=== PATIENT | female | born 1990 | race Caucasian/White ===

== ENCOUNTER 2023-03-27 15:10 | Outpatient (CLI) | payer BC, SELFPAY ==
--- NOTE | 2023-03-27 15:30 | MR_ITS ---
[address] [address] Phone:?[phone] Fax:?[phone] Referring Physician Information: Jhonatan Farias M.D. [address] [facility] [address] Phone:?[phone] Fax:?[phone] Patient:Eh Bowie D.O.B:?1990 Sex:?Female Phone:?[phone] [facility] MRN:?[id number] Exam Date:?03/27/2023 EXAM: MRI OF THE RIGHT KNEE CLINICAL INFORMATION: The patient is a 32-year-old with right knee pain. Evaluate for internal derangement. PRIOR SURGERY: None reported. COMPARISON STUDIES: Comparison is made to prior radiographs dated 03/20/2023. TECHNICAL INFORMATION: Imaging was performed on a high-field, 1.5 Maddie MR scanner. Axial proton-density and fat-suppressed T2 imaging was performed in addition to sagittal proton-density and fat-suppressed proton-density imaging. Coronal proton-density and coronal STIR imaging was also produced. FINDINGS: Articular/Extraarticular collections: Effusion: Mild. Popliteal cyst: Animal. Loose bodies: No well-defined intra-articular loose bodies are present. Subcutaneous and extraarticular soft tissues: Within normal limits. Osseous structures: Mild reactive bony change can be seen along the patellar apex, in keeping with the chondromalacia and chondral loss discussed below. No other bony abnormalities about the knee are seen. There is no evidence for fracture, contusion, or stress injury. Ligamentous structures: ACL: Intact and normal in appearance. PCL: Intact and normal in appearance. MCL: Intact and normal in appearance. LCL: Intact and normal in appearance. Posterolateral corner: Intact and normal in appearance. Posteromedial corner: No posteromedial corner soft tissue injury. Semimembranosus and pes anserine tendons demonstrate no tendinopathy or associated bursitis. Extensor mechanism/Patellar retinacular structures: Patellar tendon: Intact, without tendinopathy. Quadriceps tendon: Intact, without tendinopathy. Retinacula: The medial and lateral retinacula are intact. The medial patellofemoral ligament is intact. Medial compartment: Medial meniscus: No evidence for medial meniscal tearing can be seen. There is no evidence for parameniscal cyst formation. No meniscocapsular separation injury is identified. Medial femoral condyle: No chondromalacia, chondral defect, or osteochondral abnormality. Medial tibial plateau: No chondromalacia, chondral defect, or osteochondral abnormality. Lateral compartment: Lateral meniscus: No evidence for lateral meniscal tearing is present. No evidence for parameniscal cyst formation can be seen. Lateral femoral condyle: No chondromalacia, chondral defect, or osteochondral abnormality. Lateral tibial plateau: No chondromalacia, chondral defect, or osteochondral abnormality. Patellofemoral compartment: Patella: Full-thickness and near full-thickness chondral loss can be seen involving the patellar apex on axial series 4 image 10, measuring approximately 9 mm in mediolateral dimension and 10 mm in craniocaudal dimension. Underlying bony changes are seen. Additional mild chondromalacia along the remaining articular surfaces of the patella can be seen. Mild underlying bony changes within the patellar apex are noted. Trochlea: No chondromalacia, chondral defect, or osteochondral abnormality. Neurovascular: No definite neurovascular abnormalities are seen. CONCLUSION: 1. 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 2. No other chondral injuries about the knee are present. 3. No evidence for medial or lateral meniscal tearing is identified. 4. The cruciate and collateral ligaments appear intact. 5. No acute bony abnormalities are seen. 6. Mild knee joint effusion and minimal popliteal cyst. [facility] Electronically signed on 03/30/2023 11:27:00 AM by Jimi Ramsey M.D.
== END 2023-03-27 15:11 | disposition home or self-care (01) ==
PROVIDERS: PCP Family Medicine; Visit Provider Orthopaedic Surgery Sports Medicine
DX: M25.561 Pain in right knee (principal); M22.41 Chondromalacia patellae, right knee; M25.461 Effusion, right knee; M71.21 Synovial cyst of popliteal space [Baker], right knee; M23.91 Unspecified internal derangement of right knee
CPT/HCPCS: 73721

== ENCOUNTER 2023-05-13 13:45 | Outpatient (RCR) | payer BC, SELFPAY | END 2023-05-13 14:43 | disposition home or self-care (01) | PROVIDERS: PCP Family Medicine; Visit Provider Orthopaedic Surgery Sports Medicine | DX: M22.2X9 Patellofemoral disorders, unspecified knee (principal); M23.91 Unspecified internal derangement of right knee; S83.241A Other tear of medial meniscus, current injury, right knee, initial encounter; M25.561 Pain in right knee; Z74.09 Other reduced mobility; R29.898 Other symptoms and signs involving the musculoskeletal system; Z51.89 Encounter for other specified aftercare | CPT/HCPCS: 97110; 97116; 97161; 97535 ==

== ENCOUNTER 2025-02-14 17:17 | Outpatient (CLI) | payer BC, SELFPAY ==
--- NOTE | 2025-02-14 17:30 | MR_ITS ---
[facility] [address] [facility] [address] Phone:?[phone] Fax:?[phone] Referring Physician Information: Helder Barnhart [address] [facility] [address] Phone:?[phone] Fax:?[phone] Patient:Eh Bowie D.O.B:?1990 Sex:?Female Phone:?[phone] [facility] MRN:?[id number] Exam Date:?02/14/2025 EXAM: MRI EXAMINATION OF THE LEFT SHOULDER CLINICAL INFORMATION: Left shoulder pain. History of injury. No history of surgery to this area. TECHNICAL INFORMATION: Sagittal T2 and PD fat saturation. Axial coronal PD and PD fat saturation. No prior studies for comparison. INTERPRETATION: Bones: Series 6 image 10 as well as series 8 image 4 demonstrate a 1.1 x 1.6 cm nondisplaced fracture anteriorly involving the greater tuberosity with moderate to marked bone marrow edema signal. No other occult fracture or osseous contusion. Rotator Cuff: Mild posterior supraspinatus and anterior infraspinatus tendinopathy. This includes fraying/wear involving bursal sided fibers of the posterior supraspinatus tendon. No evidence for more discrete tear. The teres minor tendon is intact. The subscapularis tendon is intact. No evidence for rotator cuff muscle belly atrophy or edema signal. Coracoacromial arch: There is no discrete subacromial osseous spur. The bony acromiohumeral interval is measuring 5 to 6 mm. There is no thickening identified of the coracoacromial ligament. Acromioclavicular joint: Minimal/early AC joint DJD. No deformity of the underlying supraspinatus tendon. Mild thickening and edema signal involves the subacromial bursa. Biceps tendon: The long head biceps tendon is intact and nondisplaced from the bicipital groove. No tendon tear or appreciable changes of tendinopathy. Glenohumeral joint and labrum: No significant glenohumeral joint effusion. No discrete loose body within the joint. Osteochondral surfaces appear relatively preserved. No discrete SLAP tear. No other definite evidence for labral tear. No discrete paralabral cyst is identified. CONCLUSION: 1. Approximate 1.1 x 1.6 cm nondisplaced fracture involving the anterior aspect of the greater tuberosity with moderate to marked bone marrow edema signal. 2. Mild posterior supraspinatus and anterior infraspinatus tendinopathy. Associated fraying/wear involves bursal sided fibers of the posterior supraspinatus tendon, but without a discrete tendon tear. 3. 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 Mild subacromial bursitis. 4. Unremarkable and intact long biceps tendon. 5. No evidence for glenoid humeral chondromalacia. There is no definite labral tear. [facility] Electronically signed on 02/15/2025 10:48:00 AM by Gordy Colon M.D.
== END 2025-02-14 17:18 | disposition home or self-care (01) ==
LOC: MRI 17:19
PROVIDERS: PCP Family Medicine; Visit Provider Physician Assistant
DX: M25.512 Pain in left shoulder (principal); S42.92XA Fracture of left shoulder girdle, part unspecified, initial encounter for closed fracture; M19.012 Primary osteoarthritis, left shoulder; S49.92XA Unspecified injury of left shoulder and upper arm, initial encounter
CPT/HCPCS: 73221